=== PATIENT | female | born 1960 | race Caucasian/White ===

== ENCOUNTER 2016-06-23 11:55 | Emergency (ER) | payer BC ==
[~2016-06-23] VITALS: Ht 162.6 cm; Wt 58.6 kg
[2016-06-23 12:00] VITALS: TEMP 36.4; Ht 162.6 cm; Wt 58.6 kg
[2016-06-23] MEDS ORDERED: RABIES IMMUNE GLOBULIN (HUMAN) 150 INTER.UNIT/ML 2 ML VIAL IM. ONE (12:15)
[2016-06-23] MEDS ORDERED: RABIES VACCINE (IMOVAX) HUMAN DIPL CELL 2.5 INTER.UNIT/ML SYR IM. ONE (12:15)
--- NOTE | 2016-06-23 12:37 | EMERGENCY ROOM VISIT NOTE ---
ED Visit Note First contact with patient: 12:02 CHIEF COMPLAINT: Post exposure rabies prophylaxis HISTORY OF PRESENT ILLNESS: Patient is a 55-year-old white female who was referred to the emergency department by the Department of Health for post exposure rabies prophylaxis. She was potentially exposed to rabies when she cleaned her cats water bowl that a raccoon had drunk out of. The incident occurred on 06/18. She states that the raccoon was acting unusually. She called the Department of Health and was referred to the emergency department for rabies prophylaxis. She denies any handling or direct contact with the animal. REVIEW OF SYSTEMS: Review of systems as per HPI. All other systems reviewed were negative. At least 6 systems reviewed. PMH: Electronic medical records are reviewed and summarized as above/below. See Problem List. She reports her tetanus is up-to-date. SOCIAL HISTORY: Patient lives at home. Nonsmoker. PHYSICAL EXAM: Vital Signs: Reviewed Nurse's notes. CONSTITUTIONAL: Patient is a pleasant, well-appearing 55-year-old white female who is awake and alert and in no acute distress. HEAD: Atraumatic, without temporal or scalp tenderness. EYES: PERRL, EOMI, no discharge or injection. SKIN: Normal. NEUROLOGICAL: Alert and cooperative. Sensory and motor functions grossly intact. EMERGENCY DEPARTMENT COURSE: The patient was given rabies immune globulin 1180 international units and Imovax 2.5 international units IM. She was observed in the emergency department and discharged. Department of Health animal bite paperwork was completed. She was educated on the remaining rabies vaccination schedule. Vital Signs Date Time Temp Pulse Resp B/P Pulse Ox O2 Delivery O2 Flow Rate FiO2 06/23/16 13:11 84 20 132/80 98 06/23/16 12:00 36.4 84 17 156/88 99 Room Air Medications Administered Medications (Trade) Dose Ordered Sig/[place] Route Start Time Stop Time Status Last Admin Dose Admin Rabies Vaccine Human Diploid Cell (Imovax Rabies) 2.5 interunit ONCE ONCE IM. 06/23/16 12:15 06/23/16 12:16 DC 06/23/16 12:47 2.5 INTERUNIT Rabies Immune Globulin (Imogam Rabies Inj) 1,180 interunit ONCE ONCE IM. 06/23/16 12:15 06/23/16 12:16 DC 06/23/16 12:49 1,180 INTERUNIT Departure Information Impression Primary Impression: Need for post exposure prophylaxis for rabies Referrals Demi Anton (PCP) Patient Instructions My [facility] Additional Instructions Return to the emergency department on June 26, June 30 in July 07 for the remainder of your rabies vaccinations, sooner for any problems or concerns.
[2016-06-23 13:11] VITALS: BP 132/80; PULSE 84; O2SAT 98
== END 2016-06-23 13:12 | disposition home or self-care (01) ==
LOC: C.EDB 11:56 → C.EDD 13:12
DX: Z20.3 Contact with and (suspected) exposure to rabies (principal); Z29.14 Encounter for prophylactic rabies immune globulin; Z23 Encounter for immunization

== ENCOUNTER 2016-06-26 11:01 | Emergency (ER) | payer BC ==
[~2016-06-26] VITALS: Ht 162.6 cm; Wt 56.6 kg
[2016-06-26 11:04] VITALS: TEMP 36.5; Ht 162.6 cm; Wt 56.6 kg
[2016-06-26] MEDS ORDERED: LEVO100T PO (11:10)
[2016-06-26] MEDS ORDERED: RABIES VACCINE (IMOVAX) HUMAN DIPL CELL 2.5 INTER.UNIT/ML SYR IM. ONE (11:15)
--- NOTE | 2016-06-26 11:24 | EMERGENCY ROOM VISIT NOTE ---
ED Visit Note First contact with patient: 11:07 CHIEF COMPLAINT: Post exposure rabies prophylaxis HISTORY OF PRESENT ILLNESS: Patient is a 55-year-old white female who returns to the emergency department for post exposure rabies prophylaxis. She was potentially exposed to rabies when she cleaned her cats water bowl that a raccoon had drunk out of. The incident occurred on 06/18. She states that the raccoon was acting unusually. She called the Department of Health and was referred to the emergency department for rabies prophylaxis. She denies any handling or direct contact with the animal. She received her prior vaccinations here a few days ago and denies any problems or concerns. No reactions to the injections. REVIEW OF SYSTEMS: Review of systems as per HPI. All other systems reviewed were negative. At least 6 systems reviewed. PMH: Electronic medical records are reviewed and summarized as above/below. See Problem List. She reports her tetanus is up-to-date. SOCIAL HISTORY: Patient lives at home. Nonsmoker. PHYSICAL EXAM: Vital Signs: Reviewed Nurse's notes. CONSTITUTIONAL: Patient is a pleasant, well-appearing 55-year-old white female who is awake and alert and in no acute distress. HEAD: Atraumatic, without temporal or scalp tenderness. EYES: PERRL, EOMI, no discharge or injection. SKIN: Normal. NEUROLOGICAL: Alert and cooperative. Sensory and motor functions grossly intact. EMERGENCY DEPARTMENT COURSE: The patient was Imovax 2.5 international units IM. She was observed in the emergency department and discharged. She was educated on the remaining rabies vaccination schedule. Current/Historical Medications Scheduled Levothyroxine Sodium (Synthroid), 100 MCG PO DAILY Allergies Coded Allergies: Erythromycin (Verified Allergy, Unknown, nausea, 06/26/16) Tetracycline (Verified Allergy, Unknown, nausea, 06/26/16) Vital Signs Date Time Temp Pulse Resp B/P Pulse Ox O2 Delivery O2 Flow Rate FiO2 06/26/16 11:29 69 18 126/80 98 06/26/16 11:04 36.5 69 18 126/80 98 Room Air Medications Administered Medications (Trade) Dose Ordered Sig/[place] Route Start Time Stop Time Status Last Admin Dose Admin Rabies Vaccine Human Diploid Cell (Imovax Rabies) 2.5 interunit ONCE ONCE IM. 06/26/16 11:15 06/26/16 11:16 DC 06/26/16 11:23 2.5 INTERUNIT Departure Information Impression Primary Impression: Rabies, need for prophylactic vaccination against Referrals Demi Anton (PCP) Patient Instructions My [facility] Additional Instructions Return to the emergency department for the remainder of your vaccinations as previously discussed, sooner for any problems or concerns.
[2016-06-26 11:29] VITALS: BP 126/80; PULSE 69; O2SAT 98
== END 2016-06-26 11:30 | disposition home or self-care (01) ==
LOC: C.EDB 11:02 → C.EDD 11:30
DX: Z23 Encounter for immunization (principal); Z20.3 Contact with and (suspected) exposure to rabies

== ENCOUNTER 2016-06-30 10:30 | Emergency (ER) | payer BC ==
[~2016-06-30] VITALS: Ht 162.6 cm; Wt 57.7 kg
[~2016-06-30 10:30] MED LIST: LEVO100T PO
[2016-06-30 10:46] VITALS: TEMP 37.1; Ht 162.6 cm; Wt 57.7 kg
--- NOTE | 2016-06-30 10:59 | EMERGENCY ROOM VISIT NOTE ---
ED Visit Note First contact with patient: 10:55 CHIEF COMPLAINT: Rabies prophylaxis HISTORY OF PRESENT ILLNESS: This 55-year-old female patient presents to the emergency department ambulatory for their third rabies shot. The patient has not had any complications from the previous injections. They deny any other complaints. REVIEW OF SYSTEMS: A 6 system review of systems was completed with positives and pertinent negatives listed in the HPI. ALLERGIES: Erythromycin, tetracycline MEDICATIONS: Unchanged from previous PMH: Unchanged from previous visit. PHYSICAL EXAM: Vital Signs: Reviewed Nurse's notes, vital signs stable. GENERAL : This 55-year-old female, in no acute distress, well-developed, well- nourished. HEAD: Atraumatic, without temporal or scalp tenderness. EYES: PERRLA, EOMI, no discharge or injection. SKIN: Normal. NEUROLOGICAL: Alert and cooperative. Sensory and motor functions grossly intact. EMERGENCY DEPARTMENT COURSE: I examined the patient. The patient was given Imovax 1ml IM. The patient was observed for 20 minutes with no reaction. The patient was discharged home in stable condition. DIAGNOSIS: Rabies prophylaxis DISCHARGE INSTRUCTIONS: Continue vaccination schedule as directed. Return for any complications. Current/Historical Medications Scheduled Levothyroxine Sodium (Synthroid), 100 MCG PO DAILY Allergies Coded Allergies: Erythromycin (Verified Allergy, Unknown, nausea, 06/26/16) Tetracycline (Verified Allergy, Unknown, nausea, 06/26/16) Vital Signs Date Time Temp Pulse Resp B/P Pulse Ox O2 Delivery O2 Flow Rate FiO2 06/30/16 11:34 68 104/80 98 06/30/16 10:46 37.1 87 18 134/73 98 Room Air Medications Administered Medications (Trade) Dose Ordered Sig/Austin Route Start Time Stop Time Status Last Admin Dose Admin Rabies Vaccine Human Diploid Cell (Imovax Rabies) 2.5 interunit ONCE ONCE IM. 06/30/16 11:00 06/30/16 11:01 DC 06/30/16 11:11 2.5 INTERUNIT Departure Information Impression Primary Impression: Rabies, need for prophylactic vaccination against Dispostion Home / Self-Care Condition GOOD Referrals Demi Anton (PCP) Patient Instructions My [facility] Additional Instructions Continue vaccination schedule as directed. Return for any complications.
[2016-06-30] MEDS ORDERED: RABIES VACCINE (IMOVAX) HUMAN DIPL CELL 2.5 INTER.UNIT/ML SYR IM. ONE (11:00)
[2016-06-30 11:34] VITALS: BP 104/80; PULSE 68; O2SAT 98
== END 2016-06-30 11:35 | disposition home or self-care (01) ==
LOC: C.EDB 10:32 → C.EDD 11:35
DX: Z23 Encounter for immunization (principal); Z20.3 Contact with and (suspected) exposure to rabies

== ENCOUNTER 2016-07-07 14:07 | Emergency (ER) | payer BC ==
[~2016-07-07] VITALS: Ht 162.6 cm; Wt 57.8 kg
[2016-07-07 14:11] VITALS: BP 132/84; PULSE 73; TEMP 36.5; O2SAT 96; Ht 162.6 cm; Wt 57.8 kg
[2016-07-07] MEDS ORDERED: RABIES VACCINE (IMOVAX) HUMAN DIPL CELL 2.5 INTER.UNIT/ML SYR IM. ONE (14:30)
--- NOTE | 2016-07-07 17:31 | EMERGENCY ROOM VISIT NOTE ---
History First contact with patient: 14:13 Chief Complaint: RABIES VACCINE REPEAT VISIT Stated Complaint: NEED 4TH RABIES VACCINE REPEAT History of Present Illness The patient is a 55 year old female who presents to the Emergency Room for her fourth and final Imovax injection. The patient was potentially exposed to raccoon saliva after the raccoon got into a fight with her cat. The patient denies any side effects from her immunizations. She reports that her cat is also doing fine with healing wounds. The patient denies any significant health history. Review of Systems 6 system review was performed and was negative except for pertinent positives and negatives as indicated in history of present illness Past Medical/Surgical History Medical Problems: (1) No Known Active Medical Problems Family History Unremarkable Social History Smoking Status: Never Smoker Marital Status: Housing Status: lives with family Occupation Status: employed Current/Historical Medications Scheduled Levothyroxine Sodium (Synthroid), 100 MCG PO DAILY Allergies Coded Allergies: Erythromycin (Verified Allergy, Unknown, nausea, 06/26/16) Tetracycline (Verified Allergy, Unknown, nausea, 06/26/16) Physical Exam Vital Signs Date Time Temp Pulse Resp B/P Pulse Ox O2 Delivery O2 Flow Rate FiO2 07/07/16 14:11 36.5 73 16 132/84 96 Room Air Pain Rating (0-10): 0 Physical Exam CONSTITUTIONAL: Healthy and well nourished. Alert and oriented X 3 with positive affect. HEENT: Normocephalic, atraumatic. Pupils equal, round and reactive. No conjunctival injection or scleral icterus. MUSCULOSKELETAL: Full range of motion of all joints without discomfort. INTEGUMENTARY: No rash or other significant dermatologic conditions noted. NEUROLOGIC: No focal neurologic deficits noted. Medical Decision & Procedures Medications Administered Medications (Trade) Dose Ordered Sig/[place] Route Start Time Stop Time Status Last Admin Dose Admin Rabies Vaccine Human Diploid Cell (Imovax Rabies) 2.5 interunit ONCE ONCE IM. 07/07/16 14:30 07/07/16 14:31 DC 07/07/16 14:30 2.5 INTERUNIT ED Course The patient was administered Imovax IM without adverse reaction. She was advised that if she has any potential rabies exposure in the future, she should advise her healthcare provider that she has undergone this rabies immunization series. The patient was happy with plan of care, voice understanding of all discharge instructions, and denied any pain at the time of discharge. Impression Primary Impression: Rabies, need for prophylactic vaccination against Departure Information Dispostion Home / Self-Care Condition GOOD Forms HOME CARE DOCUMENTATION FORM, IMPORTANT VISIT INFORMATION Patient Instructions My [facility] Additional Instructions If you have any potential rabies exposure in the future, advise your healthcare provider that you have already undergone this rabies immunization series.
== END 2016-07-07 14:41 | disposition home or self-care (01) ==
LOC: C.EDB 14:08 → C.EDD 14:41
DX: Z23 Encounter for immunization (principal); Z20.3 Contact with and (suspected) exposure to rabies

== ENCOUNTER → 2016-07-07 | Outpatient (CLI) | payer BC ==
--- NOTE | 2016-07-10 12:46 | MAMMOGRAPHY REPORT ---
BILATERAL DIGITAL SCREENING MAMMOGRAM TOMOSYNTHESIS WITH CAD: 07/07/2016 CLINICAL HISTORY: Routine screening. Patient has no complaints. TECHNIQUE: Breast tomosynthesis in addition to standard 2D mammography was performed. Current study was also evaluated with a Computer Aided Detection (CAD) system. COMPARISON: Comparison is made to exams dated: 07/01/2014 mammogram, 05/27/2013 mammogram, 07/03/2012 as piration, 05/20/2012 mammogram, 05/20/2012 ultrasound, and 05/14/2012 mammogram - [facility]. BREAST COMPOSITION: The tissue of both breasts is heterogeneously dense, which may obscure small ma sses. FINDINGS: No suspicious masses, calcifications, or areas of architectural distortion are noted in e ither breast. There has been no significant interval change compared to prior exams. Fluctuating ci rcumscribed benign-appearing masses are again noted in the left breast, which likely represent cysts given that cysts have been seen on a prior 2012 ultrasound exam. IMPRESSION: ACR BI-RADS CATEGORY 2: BENIGN There is no mammographic evidence of malignancy. A 1 year screening mammogram is recommended. The p atient will receive written notification of the results. Approximately 10% of breast cancers are not detected with mammography. A negative mammographic repor t should not delay biopsy if a clinically suggestive mass is present. Rupal Shannon M.D. ah/:07/07/2016 15:36:04 Tool Analyst: Yinka HERNANDEZ)(M), [facility] letter sent: Normal 1/2 BI-RADS Code: ACR BI-RADS Category 2: Benign
== END | disposition home or self-care (01) ==
LOC: C.MAMM 13:45
PROVIDERS: ATTEND Obstetrics & Gynecology
DX: Z12.31 Encounter for screening mammogram for malignant neoplasm of breast (principal)

== ENCOUNTER → 2017-01-17 | Outpatient (CLI) | payer BC | END | disposition home or self-care (01) | LOC: C.PAPS 09:33 | PROVIDERS: ATTEND Obstetrics & Gynecology | DX: Z01.419 Encounter for gynecological examination (general) (routine) without abnormal findings (principal); Z11.51 Encounter for screening for human papillomavirus (HPV) ==

== ENCOUNTER → 2017-08-03 | Outpatient (CLI) | payer OTHER ==
--- NOTE | 2017-08-06 14:32 | MAMMOGRAPHY REPORT ---
BILATERAL DIGITAL SCREENING MAMMOGRAM TOMOSYNTHESIS WITH CAD: 08/03/2017 CLINICAL HISTORY: Routine screening. Patient has no complaints. TECHNIQUE: Breast tomosynthesis in addition to standard 2D mammography was performed. Current study was also evaluated with a Computer Aided Detection (CAD) system. COMPARISON: Comparison is made to exams dated: 07/07/2016 mammogram, 07/06/2015 mammogram, 07/01/2014 mamm ogram, 05/27/2013 mammogram, 05/14/2012 mammogram, and 05/10/2011 mammogram - [facility] BREAST COMPOSITION: The tissue of both breasts is heterogeneously dense, which may obscure small mas ses. FINDINGS: There is an oval partially circumscribed and partially obscured 9 mm mass within the left u pper outer quadrant, for which ultrasound is recommended for further evaluation. This may represent a cyst. The remainder of both breasts are stable compared to prior exams, without suspicious masses, calcific ations, or areas of architectural distortion noted. IMPRESSION: ACR BI-RADS CATEGORY 0: INCOMPLETE EVALUATION: NEED ADDITIONAL IMAGING EVALUATION Left breast mass, for which additional imaging evaluation is recommended. The patient will be called to schedule an appointment. Approximately 10% of breast cancers are not detected with mammography. A negative mammographic report should not delay biopsy if a clinically suggestive mass is present. Rupal Shannon M.D. /:08/03/2017 16:19:12 Car Bracer: Amber Rodriguez [facility] letter sent: Addl Imaging 0 BI-RADS Code: ACR BI-RADS Category 0: Incomplete Evaluation: Need Additional Imaging Evaluation
== END | disposition home or self-care (01) ==
LOC: C.MAMM 14:07
PROVIDERS: ATTEND Obstetrics & Gynecology
DX: Z12.31 Encounter for screening mammogram for malignant neoplasm of breast (principal); N63.20 Unspecified lump in the left breast, unspecified quadrant

== ENCOUNTER → 2017-08-16 | Outpatient (CLI) | payer OTHER ==
--- NOTE | 2017-08-16 15:33 | MAMMOGRAPHY REPORT ---
ULTRASOUND OF LEFT BREAST: 08/16/2017 CLINICAL HISTORY: Callback from screening mammogram for a circumscribed 9 mm mass within the left upp er outer quadrant. COMPARISON: Comparison is made to exams dated: 08/03/2017 mammogram, 07/07/2016 mammogram, 07/06/2015 mamm ogram, 07/01/2014 mammogram, 05/27/2013 mammogram, and 07/03/2012 aspiration - [facility]. TECHNIQUE: Real-time targeted ultrasound of the left breast was performed. FINDINGS: Real-time, high-resolution targeted ultrasound was performed of the area of the mammographi c mass. In the left 3:00 breast, 1 cm from the nipple, there is an oval circumscribed anechoic mass which measures 7 x 6 x 5 mm. This corresponds with the mammographic mass and is consistent with a be nign cyst. IMPRESSION: ACR BI-RADS CATEGORY 2: BENIGN Benign 7 mm cyst in the left 3:00 breast on ultrasound, which corresponds with the mammographic mass. There is no sonographic evidence of malignancy. A 1 year screening mammogram is recommended. The patient was verbally notified of the results. Rupal Shannon M.D. /:08/16/2017 11:48:38 Operations Accountant: Rupal Shannon MD, [facility] letter sent: Normal 1/2 BI-RADS Code: ACR BI-RADS Category 2: Benign
== END | disposition home or self-care (01) ==
LOC: C.MAMM 11:29
PROVIDERS: ATTEND Obstetrics & Gynecology
DX: N60.02 Solitary cyst of left breast (principal)